=== PATIENT | male | born 1980 | race Caucasian/White ===

== ENCOUNTER 2024-02-27 06:41 | Day surgery (SDC) | payer OTHER, SELFPAY ==
[2024-02-27] VITALS (7 sets, daily range): BP systolic 92–123; BP diastolic 67–79; PULSE 68–74; RESP 14–16; TEMP 36.2–36.6; O2SAT 97–98; BMI 24.8
--- NOTE | 2024-02-27 06:31 | PCM.PRE.AN2 ---
ASA Classification* ASA Classification ASA Classification: 2 Assessment & Plan Anesthesia* Anesthesia Assessment Anesthesia Assessment: Discussed sedation and/or anesthesia options, risks, benefits, and alternatives with patient/parents/legal guardian/POA. Questions invited. The patient/parents/legal guardian/POA seems to understand and agrees to proceed with anesthesia plan. Reviewed the physical assessment, medical history, allergy history and patient home medications list prior to surgery/procedure/anesthetic and documented any changes. Performed airway and anesthesia risk assessments. 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 When Was Last Pacemaker Check QUESTION #4 FULL TEXT: You/Your Family Experience fever (hyperthermia) with Anesthesia Last Oral Intake Last Oral intake: Last Oral Intake NPO since Meds taken in AM with sips of water? Meds patient instructed to take am of surgery PONV PONV - meteorological observer: PONV - meteorological observer Female No 02/21/24 12:16 HX of Motion Sickness No 02/21/24 12:16 HX of N/V After Surgery No 02/21/24 12:16 Non-Smoker Yes 02/21/24 12:16 Duration of Surgery greater No 02/21/24 12:16 than 60 minutes Number of Risk Factors 1 02/21/24 12:16 PONV Score Low Risk 02/21/24 12:16 Respiratory Assessment Respiratory Assessment - meteorological observer: Respiratory Tract Infection Hx - meteorological observer Hx Respiratory Tract Infection No 02/21/24 12:16 STOP Sleep Apnea STOP Sleep Apnea - meteorological observer: STOP Sleep Apnea - meteorological observer Hx Hypertension No 02/21/24 12:16 Hx Sleep Apnea No 02/21/24 12:16 CPAP BIPAP Do you snore loudly (louder No 02/21/24 12:16 than talking or can be heard Do you often feel tired/ No 02/21/24 12:16 fatigued/ sleepy during daytime? Has anyone observed you stop No 02/21/24 12:16 breathing during sleep? STOP Results Negative 02/21/24 12:16 QUESTION #5 FULL TEXT : Do you snore loudly (louder than talking or can be heard through closed doors)? 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 Specify any problems Hx of Preganancy in last 3 N/A 02/21/24 12:16 Months Nurse Filling Out Transfusion DSCHRIBER 02/21/24 12:16 & Questions: Date: 02/21/24 02/21/24 12:16 Time: 12:17 02/21/24 12:16 Patient unable to answer at this time (ie. confused, unrespo /Reproduction History /Reproductive History - meteorological observer: /Reproductive Hx- meteorological observer Hx Now No 02/21/24 12:16 Gestational Age (in weeks): EDC: Hx Hx Para Hx Section SAB No 02/21/24 12:16 PFSH Medical History Wears glasses PTSD (post-traumatic stress disorder) Marijuana use Alcohol use History of colitis Non-smoker Anxiety Depression Home Medications ?Medication ?Instructions ?Recorded ?Last Taken ?Type bupropion HCl 150 mg 24 hr tablet, 150 mg PO QAM 12/26/23 Unknown History extended release buspirone 10 mg tablet 10 mg PO DAILY 12/26/23 Unknown History duloxetine 30 mg capsule,delayed 60 mg PO QDAY 12/26/23 Unknown History release Allergy/AdvReac Type Severity Reaction Status Date / Time No Known Allergies Allergy Verified 02/21/24 12:14 Family History Sister Diabetes Grandfather Heart disease Mother Hypertension CVA (cerebral vascular accident) Surgical History Hx of colonoscopy Hx of oral surgery Social History Smoking Status: Never smoker substance use type: does not use Review of Systems (Anesthesia) ROS Narrative System reviewed and no additional complaints, except as documented.
[2024-02-27] MEDS: Lactated Ringers 1,000 ML 15 ML IV (07:03)
--- NOTE | 2024-02-27 07:10 | HP.PCM_ITS ---
HPI - General General Date of Service: 02/27/24 [facility] Narrative SPENCER GROSSMAN, is a 43 M who presents for colonoscopy due to history of colon polyps. Patient denies any changes since office visit. office visit 12/26/23 [facility] HPI: 43-year-old male presents for colonoscopy due to history of colon polyps. Patient had a colonoscopy in 2018 due to having questionable colitis at the time -tubular adenoma was found and removed at that time. Patient denies any family history of colon cancer. Patient [place] any chronic abdominal pain/nausea/vomiting/reflux. Patient has bowel movements about every other day had a small amount of bright red blood maybe once or twice a year. [facility] Medical History Wears glasses PTSD (post-traumatic stress disorder) Marijuana use Alcohol use History of colitis Non-smoker Anxiety Depression Home Medications ?Medication ?Instructions ?Recorded ?Last Taken ?Type bupropion HCl 150 mg 24 hr tablet, 150 mg PO QAM 12/26/23 Unknown History extended release buspirone 10 mg tablet 10 mg PO DAILY 12/26/23 Unknown History duloxetine 30 mg capsule,delayed 60 mg PO QDAY 12/26/23 Unknown History release Allergy/AdvReac Type Severity Reaction Status Date / Time No Known Allergies Allergy Verified 02/27/24 06:54 Family History Sister Diabetes Grandfather Heart disease Mother Hypertension CVA (cerebral vascular accident) Surgical History Hx of colonoscopy Hx of oral surgery Social History Smoking Status: Never smoker substance use type: does not use Past Medical/Surgical History Planned Operation Planned Operative Procedure(s): CSCOPE Previous Hospitalizations/Surgeries HX Hospitalizations: No Any Problems With Anesthesia: No You/Your Family Experience Fever (Hyperthermia) With Anes: No Cholinesterase deficiency: No Cardiovascular Hx Hypertension: No Respiratory Hx Sleep Apnea: No Hx Respiratory Tract Infection/Cold (presently): No Do You Snore Loudly (louder than talking or can be heard): No Do You Often Feel Tired/ Fatigued/ Sleepy Dring Daytime?: No Has Anyone Observed You Stop Breathing During Sleep?: No Result (for STOP score): Negative Smoking Status: Never smoker Neurological Does patient have nerve stimulator: No Reproduction : No Miscellaneous Recent Exposure to Contagious Disease: No Allergies No Known Allergies Allergy (Verified 02/27/24 06:54) Discharge Is Pt Admitted From a Senior Living, or a [facility]: No After D/C, Where Do you Plan to Go: Return Home Vital Signs Vital Signs Vital Signs: 02/27/24 06:55 02/27/24 06:55 Temperature 97.3 F L Temperature Source Temporal Pulse Rate 69 Respiratory Rate 16 Respiratory Pattern Normal Blood Pressure 123/79 H Blood Pressure Mean 93 Blood Pressure Source Monitor Blood Pressure Position Semi-Fowlers Blood Pressure Location Left Arm Pulse Ox 97 Oxygen Delivery Method Room Air Weight Weight: 183 lb Body Mass Index (BMI) 24.8 Physical Exam Const alert, oriented x3 and no apparent distress HEENT normocephalic and head/scalp atraumatic Resp normal respiratory effort Cardio regular rate GI soft to palpation and non-tender; Negative for non-distended Palpation: Negative for guarding Extremity no clubbing, cyanosis or edema Skin no rashes or lesions noted Neuro CN's II-XII intact bilaterally Psych mental status grossly normal Assessment & Plan Assessment/Plan (1) Encounter for colonoscopy due to history of adenomatous colonic polyps: Surgery Risks - Colonoscopy I discussed with the patient the risks of the procedure: Yes Risks Include but are not Limited To: Risks include but are not limited to: Bleeding, perforation requiring further surgery, inability to complete colonoscopy requiring barium enema.
--- NOTE | 2024-02-27 07:56 | OP.COLON_ITS ---
Patient Name: Raul Pierce Procedure Date: 02/27/2024 6:51 AM Date of : 1980 Age: 43 Procedure: Colonoscopy Indications: High risk colon cancer surveillance: Personal history of colonic polyps Providers: Yesenia Sheth MD Referring MD: [facility] Medicines: Monitored Anesthesia Care Patient Profile: This is a 43 year old male. Last Colonoscopy: 2018. Complications: No immediate complications. Procedure: Pre-Anesthesia Assessment: - Prior to the procedure, a History and Physical was performed, and patient medications and allergies were reviewed. The patient's tolerance of previous anesthesia was also reviewed. The risks and benefits of the procedure and the sedation options and risks were discussed with the patient. All questions were answered, and informed consent was obtained. Prior Anticoagulants: The patient has taken no anticoagulant or antiplatelet agents. ASA Grade Assessment: Per anesthesia. After reviewing the risks and benefits, the patient was deemed in satisfactory condition to undergo the procedure. After I obtained informed consent, the scope was passed under direct vision. Throughout the procedure, the patient's blood pressure, pulse, and oxygen saturations were monitored continuously. The Colonoscope was introduced through the anus and advanced to the terminal ileum. The colonoscopy was performed without difficulty. The patient tolerated the procedure well. The quality of the bowel preparation was good. Scope In: 7:30:46 AM Scope Withdrawal Time 0 hours 10 minutes 16 seconds Scope Out: 7:50:46 AM Total Procedure Duration Time 0 hours 20 minutes 0 seconds Findings: The perianal and digital rectal examinations were normal. The entire examined colon appeared normal on direct and retroflexion views. Impression: - The entire examined colon is normal on direct and retroflexion views. - No specimens collected. Recommendation: - Discharge patient to home. - Resume previous diet. - Continue present medications. - Await pathology results. - Repeat colonoscopy in 10 years for screening purposes. Procedure Code(s): --- Professional --- G0105, PT, Colorectal cancer screening; colonoscopy on individual at high risk Diagnosis Code(s): --- Professional --- Z86.010, Personal history of colonic polyps CPT copyright 2021 [employer]. All rights reserved. The codes documented in this report are preliminary and upon tier over review may be revised to meet current compliance requirements. MD Yesenia Jansen MD 02/27/2024 7:56:20 AM This report has been signed electronically. Number of Addenda: 0 Note Initiated On: 02/27/2024 6:51 AM
--- NOTE | 2024-02-27 07:57 | OP.CCLET_ITS ---
02/27/2024 [facility] Re : Colonoscopy procedure for Raul [facility] This procedure was performed on Tuesday, February 27, 2024. My impressions and recommendations are as follows: Impressions : - The entire examined colon is normal on direct and retroflexion views. - No specimens collected. Recommendations : - Discharge patient to home. - Resume previous diet. - Continue present medications. - Await pathology results. - Repeat colonoscopy in 10 years for screening purposes. My findings are described in the full procedure note, which is enclosed. If I can be of further assistance, please feel free to contact me at Doctor phone number(s): , Work: . Sincerely, MD Yesenia Jansen MD 02/27/2024 7:56:20 AM This report has been signed electronically.
--- NOTE | 2024-02-27 07:57 | PCM.POST.ANE ---
Anesthesia: Postop Eval I Current Vital Signs Temperature: 97.3 F Pulse Rate: 74 Blood Pressure: 106/76 Respiratory Rate: 16 Pulse Ox: 97 Oxygen Delivery Method: Room Air Assessment Airway patent: Yes Spontaneous unlabored respirations: Yes Mental status: Awake and Calm nausea: No Vomiting: No Anesthesia Complication: No Fluid Hydration Crystalloid volume administer (ml): 600 Total IV fluid infused: 600 Progress Note Anesthesia document: Postop Eval 1 completed: Yes
--- NOTE | 2024-02-27 09:10 | PCM.POSTANE2 ---
Anesthesia Postop Eval I Sum Postop Eval Completion status Anesthesia document: Postop Eval 1 completed: Yes Anesthesia Postop Eval I Summary Anesthesia Postop Eval I Summary: Anesthesia Postop Eval I: Assessment Summary Airway patent Yes 02/27/24 08:21 [email or web address] Spontaneous unlabored Yes 02/27/24 08:21 [email or web address] respirations Mental status Awake,Calm 02/27/24 08:21 [email or web address] nausea No 02/27/24 08:21 [email or web address] Vomiting No 02/27/24 08:21 [email or web address] Anesthesia Postop Eval I: Fluid Summary Crystalloid volume administer 600 02/27/24 08:21 [email or web address] (ml) Colloids volume administered ( ml) Blood Product volume administered (ml) Total IV fluid infused 600 02/27/24 08:21 [email or web address] Anesthesia Postop Eval I: Summary Notes Anesthesia Complication No 02/27/24 08:21 [email or web address] Anesthesia Complication Comment: Post-operative progress note Anesthesia: Postop Eval II Evaluation Mental status: Awake and Calm Pain Level: 0 nausea: No Vomiting: No Complications Anesthesia Complication: No
== END 2024-02-27 08:27 | disposition home or self-care (01) ==
LOC: EN 06:44 → AC 06:46
PROVIDERS: Visit Provider Surgery
PROC: 0DJD8ZZ Inspection of Lower Intestinal Tract, Via Natural or Artificial Opening Endoscopic (ICD-10-PCS; CPT 45378; principal; 2024-02-27 07:25)
DX: Z12.11 Encounter for screening for malignant neoplasm of colon (principal); F43.10 Post-traumatic stress disorder, unspecified; F32.A Depression, unspecified; F41.9 Anxiety disorder, unspecified; Z87.19 Personal history of other diseases of the digestive system; Z86.010 Personal history of colon polyps; Z79.899 Other long term (current) drug therapy
CPT/HCPCS: G0105; J7120; J2405

== ENCOUNTER 2024-05-24 16:49 | Emergency (ER) | payer OTHER, SELFPAY ==
[2024-05-24] VITALS (7 sets, daily range): BP systolic 105–122; BP diastolic 74–82; PULSE 62–75; RESP 12–20; TEMP 36.6–36.8; O2SAT 98–100; BMI 26.5
--- NOTE | 2024-05-24 17:13 | EKG12_ITS ---
Test Reason : chest tightness Blood Pressure : / mmHG Vent. Rate : 066 BPM Atrial Rate : 066 BPM P-R Int : 164 ms QRS Dur : 088 ms QT Int : 370 ms P-R-T Axes : 020 034 039 degrees QTc Int : 387 ms Normal sinus rhythm Normal ECG Confirmed by Sherwin Nelson ([id number]), editor managing newspaper SHELLI VALLEJO ([id number]) on 05/26/2024 11:00:49 AM Referred By: Confirmed By:Sherwin Nelson
--- NOTE | 2024-05-24 17:15 | RAD_ITS ---
INDICATION: chest pain EXAMINATION/TECHNIQUE: X-RAY - XR Chest 1 View COMPARISON: None. FINDINGS: The lungs are clear. The cardiomediastinal silhouette is unremarkable. No pleural effusion or pneumothorax. No acute osseous abnormalities. RAD/Chest 1 View (Portable) IMPRESSION: No acute radiographic abnormalities. Electronically Signed: Pola Beckwith MD at 19:00 EDT ,
--- NOTE | 2024-05-24 17:18 | ED.VIS.CHEST ---
HPI History of Present Illness Chief Complaint: Chest Pain Detail of Chief Complaint: Atypical chest pain Informant: patient and family Onset/Context/Timing Onset: Today and Hours Activity at onset: sudden, onset and - (3 AM this morning which awoke him from sleep. Midsternal radiates around his left side of his chest into his back.) Timing: Continuous Quality: Positive for Aching Location: Substernal and - (Radiates across left chest and back.) Current Severity: Mild Maximum Severity: Mild Worsened By: - (Lying supine.) Relieved By: - (Better in an upright position.) Associated Symptoms: Negative for Nausea, Vomiting, Diaphoresis, Dyspnea, Cough, Fever, Lightheadedness, Acid Reflux or Palpitations Narrative Narrative: Feedin-year-old male no past cardiac history. Non-smoker. No history of DVT or PE risk factors. Patient is a little states at 3:00 this morning he was woken with midsternal chest pain. Sometimes it will radiate around his left chest into his back. No associated nausea or diaphoresis. No shortness of breath. No history of reflux. No cardiac history. No history of DVT or PE or risk factors. No family history of clotting disorders. No recent travel neurosurgery no hospitalization. No hemoptysis. No leg pain or swelling. He denies any recent exertional chest pain or exertional dyspnea. He cuts his own yard and walk since he has not had any problems with that. Since Prior Similar Symptoms: No Recent Illness/Hospitalization: No CVD Risk Factors: Negative for Hypertension or Diabetes PE Risk Factors: Negative for Recent Travel/Surgery, Recent Immobilization, Prior DVT or PE, Cancer or OCP + Smoking + >/=35 TAD Risk Factors: Negative for Marfan's Syndrome [facility] Medical History Wears glasses PTSD (post-traumatic stress disorder) Marijuana use Alcohol use History of colitis Non-smoker Anxiety Depression Home Medications ?Medication ?Instructions ?Recorded ?Last Taken ?Type bupropion HCl 150 mg 24 hr tablet, 150 mg PO QAM 12/26/23 Unknown History extended release buspirone 10 mg tablet 10 mg PO DAILY 12/26/23 Unknown History duloxetine 30 mg capsule,delayed 60 mg PO QDAY 12/26/23 Unknown History release Allergy/AdvReac Type Severity Reaction Status Date / Time No Known Allergies Allergy Verified 05/24/24 16:49 Family History Sister Diabetes Grandfather Heart disease Mother Hypertension CVA (cerebral vascular accident) Surgical History Hx of colonoscopy Hx of oral surgery Social History Smoking Status: Never smoker substance use type: does not use ROS ROS ED ROS Narrative Denies recent illness. Constitutional Constitutional ED: Denies chills or fever(s) Eyes Eyes: Reports none ENT ENT ED: Denies ear pain Cardiovascular Cardiovascular: Reports as per HPI and chest pain; Denies palpitations or racing heartbeat Respiratory/Chest Respiratory/Chest: Denies cough or dyspnea Gastrointestinal Gastrointestinal: Denies abdominal pain, constipation, diarrhea, melena, nausea or vomiting Genitourinary Genitourinary ED: Denies dysuria or hematuria Musculoskeletal Musculoskeletal: Denies arthralgias or back pain Integumentary Denies abscess or Abrasions Neurologic Neurologic: Denies headache(s) Psychiatric Psychiatric: Denies depression Endocrine Endocrinology: Denies cold intolerance Hematologic/Lymphatic Hematologic/Lymphatic: Denies easy bleeding Allergic/Immunologic Allergic/Immunologic ED: Denies mouth swelling EXAM Physical Exam Narrative Exam Narrative: Well-appearing 43-year-old male. Vital signs are stable afebrile. Sitting upright in bed. and parents are at bedside. Pulse ox 100% on room air no signs of pox. H EENT exam unremarkable. Neck nontender JVD. Lungs clear to auscultation bilateral. Heart regular rate rhythm rate about 70 no murmur. Chest wall and ribs nontender. No reproducible pain. No ecchymosis or bruising. No subcu air or crepitus. Abdomen soft, nontender, nondistended normal bowel sounds without peritoneal signs. Moving all 4 extremities. Calves are nontender without edema or cords. Equal symmetrical radial pulses. 5/5 bartacker strength. Dorsi plantarflexion intact. Back exam normal. No reproducible pain. Neurologic exam normal. Const Vital Signs: 05/24/24 16:49 05/24/24 17:10 05/24/24 17:15 Temperature 98.3 F Temperature Source Oral Pulse Rate 75 Respiratory Rate 16 Respiratory Effort Normal Blood Pressure 122/79 H Blood Pressure Mean 93 Pulse Ox 100 98 Oxygen Delivery Method Room Air Room Air 05/24/24 17:45 05/24/24 18:00 05/24/24 18:45 Temperature Temperature Source Pulse Rate 63 62 64 Respiratory Rate 18 16 16 Respiratory Effort Blood Pressure 107/75 106/74 110/79 Blood Pressure Mean 85 85 89 Pulse Ox 99 99 100 Oxygen Delivery Method 05/24/24 19:00 Temperature Temperature Source Pulse Rate 73 Respiratory Rate 20 H Respiratory Effort Blood Pressure 108/75 Blood Pressure Mean 86 Pulse Ox 100 Oxygen Delivery Method Positive well nourished and well developed; Negative for obese, cachectic, contractures or unkempt General Appearance ED: well developed and NAD; Negative for unkempt, cachectic, contractures or pallor Nutritional Appearance: Negative for cachectic or obese HEENT Reports moist mucous membranes normocephalic and atraumatic; Negative for trauma or tenderness Eyes PERRL and EOMs intact bilaterally General Eye ED: Negative for pale conjunctiva or scleral icterus Neck no lymphadenopathy, supple and no JVD General: Negative for tenderness Chest Wall inspection of chest normal and palpation of chest normal Chest: Negative for tenderness Resp normal respiratory effort and clear to auscultation bilaterally Effort and Inspection: Negative for respiratory distress Auscultation: Negative for rales, rhonchi, wheezes or diminished lung sounds Cardio regular rate, regular rhythm, S1 normal heart sound, S2 normal heart sound and no murmurs Rate: Negative for bradycardia or tachycardic Rhythm: Negative for abnormal rhythm Peripheral Pulses: pulses 2+ throughout GI normal to inspection, nondistended, normoactive bowel sounds, soft to palpation, non-tender and no masses Back/Spine no CVA tenderness and no thoracic nor lumbar tenderness General Back: Negative for CVA tenderness Cervical Spine: Negative for cervical spine tenderness Extremity normal to inspection General Extremety ED: Negative for edema, pulses abnormal or tenderness General Extremity: Negative for edema or pulses abnormal Neuro oriented x3 and CN's II-XII intact bilaterally Sensorium / Orientation: awake, alert, oriented to person, oriented to place and oriented to time; Negative for confused or lethargic Motor Exam: strength 5/5 throughout Psych mental status grossly normal Appearance: Negative for unkempt Attitude: No agitated Mood & Affect: Negative for depressed, anxious or tearful Skin no rashes or lesions noted and no wounds General Skin Exam: Negative for jaundice or pallor Rashes: No rashes noted Trauma: Negative for abrasion, laceration or puncture Heart Score History: Slightly/Non-Suspicious ECG: Normal Age: </= 45 years Risk Factors: No Risk Factors Troponin: </= Normal Limit Score: 0 MDM MDM MDM Narrative Medical decision making narrative: 43-year-old male with atypical, nonexertional, nonreproducible, chest pain that is been going on for about 14 hours. Denies any other complaints. No recent exertional dyspnea or exertional chest pain. No history of or family history of blood clots or clotting disorder. Unremarkable exam. He will undergo a cardiac workup. Repeat exam at 7:25 PM. Patient doing well. Exam benign. GI cocktail and Protonix really did not change his symptoms. It is not reproducible on his chest wall. Again is not exertional. Discussed all his test results with both he and his . They are comfortable being discharged home with outpatient follow-up. [facility] He knows return if he is feeling worse. History & Record Review Discussion w/independent historian: Patient and Family Lab Data Attestation: I reviewed the patient's lab results. Lab results narrative: CBC shows normal white count 8. H&H 14 and 42. Platelets 244. Electrolytes unremarkable gap 4. Normal BUN and creatinine. Glucose 106. Heart enzyme 4. D-dimer 0.27. Chest x-ray normal. Chest x-ray normal. Labs: Laboratory Results - last 24 hr 05/24/24 05/24/24 17:05 17:26 WBC 8.3 RBC 4.78 Hgb 14.2 Hct 42.7 MCV 89.3 MCH 29.7 MCHC 33.3 RDW Std Deviation 42.5 RDW Coeff of Roxy 13.0 Plt Count 244 MPV 10.9 Immature Gran % (Auto) 0.200 Neut % (Auto) 51.8 Lymph % (Auto) 36.4 [place] % (Auto) 8.5 Eos % (Auto) 2.3 Baso % (Auto) 0.8 Absolute Neuts (auto) 4.3 Absolute Lymphs (auto) 3.01 Nucleated RBC % 0 D-Dimer Quant (PE/DVT) 0.27 Sodium 139 Potassium 4.0 Chloride 106 Carbon Dioxide 29.0 Anion Gap 4 L BUN 13 Creatinine 1.11 Estim Creat Clear Calc 96.13 Est GFR (MDRD) Af Amer 94 Est GFR (MDRD) Non-Af 77 BUN/Creatinine Ratio 11.7 Glucose 106 Calcium 9.2 Troponin I High Sens 4 Radiography Chest X-Ray - ED: 1 View, Read by ED Physician, Read by Radiologist, Normal, Heart, Lungs, Mediastinum, Bony Structures and No Acute Disease Diagnostic Testing: Clinical Impression(s) from Imaging Studies Chest X-Ray 05/24/24 17:15 IMPRESSION: No acute radiographic abnormalities. Electronically Signed: Pola Beckwith MD at 19:00 EDT , Chest x-ray, portable, single view, interpreted by myself and radiologist shows no acute abnormality. Normal cardiac silhouette. Normal mediastinum. Normal lung graham. Rhythm Strip Rhythm Strip: Sinus Rhythm Rate: 66 Ectopy: None EKG Initial EKG: Attestation: I personally reviewed and interpreted this EKG as follows: Interpretation: Sinus Rhythm and No Acute Injury Pattern Comments: Normal sinus rhythm rate of 66 no acute signs of UT or ischemia. Discharge Plan Triage Chief Complaint: Chest Pain ED Provider: Larry Auguste Dx/Rx/DC Orders Clinical Impression: Chest pain of uncertain etiology Instructions: ED Chest Pain, Uncertain Cause Prescriptions: No Action bupropion HCl 150 mg tablet extended release 24 hr 150 mg PO QAM buspirone 10 mg tablet 10 mg PO DAILY duloxetine 30 mg capsule,delayed release(DR/EC) 60 mg PO QDAY [facility] [facility] [Primary [place] Provider] - 3-5 Days if not improving Activity Restrictions/Additional Instructions: Your test today were unremarkable. No signs of heart attack or blood clot. Tylenol for any pain. And/or Motrin. [facility] Discussed with him an outpatient stress test. Return if you are feeling worse. Increasing pain or develop shortness of breath. Or feeling worse. Print Language: [place] Disposition Disposition: Home, Self Care
[2024-05-24 17:20] LABS: Absolute Lymphocyte Count 3.01 X10^3/uL (0.83-4.51); Absolute Neutrophil Count 4.3 X10^3/uL (2.0-7.7); Basophil# 0.07 X10^3/uL; Basophil% 0.8 % (0-1); Eosinophil# 0.19 X10^3/uL; Eosinophils% 2.3 % (0-5); Hematocrit 42.7 % (40-54); Hemoglobin 14.2 g/dL (13.0-16.5); Lymphocyte # 3.01 X10^3/ul (0.83-4.51); Lymphocyte % 36.4 % (19-41); Mean Corp Hgb Conc 33.3 g/dL (32-36); Mean Corpuscular Hgb 29.7 pg (27.0-32.0); Mean Corpuscular Volume 89.3 fL (80-94); Mean Platelet Vol. 10.9 fl (6.2-12.0); Monocyte% 8.5 % (0-10); NRBC Flagged by Analyzer 0 % (0-5); Neutrophil # 4.27 X10^3/uL (2.7-7.7); Neutrophil % 51.8 % (47-70); Platelet Count 244 K/mm3 (150-450); RBC Distribution Width SD 42.5 fl (35.1-43.9); Red Blood Count 4.78 M/mm3 (4.6-6.2); White Blood Count 8.3 K/mm3 (4.4-11.0)
[2024-05-24 17:36] LABS: Anion Gap 4 (5-15); BUN 13 mg/dL (7-18); BUN/Creat Ratio 11.7 RATIO (10-20); Calcium,Total 9.2 mg/dL (8.5-10.1); Chloride 106 mmol/L (98-107); Creatinine, Serum 1.11 mg/dL (0.70-1.30); EST Glomerular Filtration Rate 77 mL/min (>60); Est Glom Filt Rate - Afr Amer 94 mL/min (>60); Estimated Creatinine Clearance 96.13 ml/min; Glucose 106 mg/dL (74-106); Sodium Level 139 mmol/L (136-145); Troponin-I HS 4 pg/mL (3.0-78.0)
[2024-05-24 17:56] LABS: D-Dimer Quantitative (DVT/PE) 0.27 FEU/ug/m (0.27-0.49)
[2024-05-24] MEDS: Pantoprazole Sodium 40 MG Tablet PO (18:04)
[2024-05-24] MEDS: Lidocaine 2% Viscous15 ML UDC 15 ML PO (18:04)
[2024-05-24] MEDS: Mag /Aluminum/Simeth WCH UDC 30 ML ORAL.SUSP PO (18:04)
== END 2024-05-24 19:40 | disposition home or self-care (01) ==
PROVIDERS: Emergency Provider Emergency Medicine; Visit Provider Emergency Medicine
DX: R07.9 Chest pain, unspecified (principal); F41.9 Anxiety disorder, unspecified; F32.A Depression, unspecified
CPT/HCPCS: 71045; 80048; 84484; 85025; 85379; 93005; 99284; A4216